=== PATIENT | female | born 1950 | race Caucasian/White ===

== ENCOUNTER 2018-01-10 17:15 | Emergency (ER) | payer MEDICARE, OTHER ==
[2018-01-10 17:23] VITALS: BP 166/65
[2018-01-10] MEDS ORDERED: LIDOCAINE 5% (700 MG) TRANSDERMAL ADH..PATCH TP ONE (17:56)
[2018-01-10] MEDS ORDERED: CYCLOBENZAPRINE HCL 10 MG TABLET PO ONE (17:56)
[2018-01-10] MEDS ORDERED: ACETAMINOPHEN 325 MG TABLET PO ONE (17:56)
--- NOTE | 2018-01-10 17:56 | ER Document Report ---
ED Medical Screen (RME) - General Chief Complaint: Leg Pain Stated Complaint: LEG PAIN Time Seen by Provider: 01/10/18 17:42 Information source: Patient TRAVEL OUTSIDE OF THE [place] IN LAST 30 DAYS: No - HPI Patient complains to provider of: back pain Onset: Other - 67-year-old female presents for evaluation of left-sided low back pain. This was atraumatic in nature though she has been working 12 hours a day generally seated has had some low back pain problems in the past. She notes that since it started she visited an urgent care at which time they gave her diclofenac and encouraged her to utilize some exercises to help with her symptoms. These have helped only a little bit with her symptoms since then. She is now having difficulty walking and going from sitting to standing and is concerned she may not be able to function. Denies any loss of continence in bladder or bowel, denies any IV drug abuse, denies any focal numbness or weakness in the lower extremities. Denies any fevers or chills, abdominal pain , diarrhea constipation or dysuria denies any chest pain or shortness of breath no lightheadedness or other symptoms. - Related Data Allergies/Adverse Reactions: No Known Allergies Allergy (Verified 01/10/18 17:46) Past Medical History - General Information source: Patient - Social History Chew tobacco use (# tins/day): No Frequency of alcohol use: Occasional Drug Abuse: None Renal/ Medical History: Denies: Hx Peritoneal Dialysis Past Surgical History: Reports: Hx Cholecystectomy, Hx Orthopedic Surgery - 5- 7c fusion Review of Systems - Review of Systems -: Yes All other systems reviewed and negative Physical Exam - Vital signs Vitals: Temp Pulse Resp BP Pulse Ox 98.2 F 89 18 166/65 H 97 01/10/18 17:21 01/10/18 17:21 01/10/18 17:21 01/10/18 17:21 01/10/18 17:21 - General General appearance: Appears well In distress: None - HEENT Head: Normocephalic Eyes: Normal Conjunctiva: Normal Cornea: Normal Extraocular movements intact: Yes Eyelashes: Normal Pupils: PERRL - Respiratory Respiratory status: No respiratory distress Chest status: Nontender Breath sounds: Normal Chest palpation: Normal - Cardiovascular Rhythm: Regular Heart sounds: Normal auscultation Murmur: No - Abdominal Inspection: Normal Distension: No distension Tenderness: Nontender - Back Back: Tender - Marked tenderness along the left quadratus lumborum at the lumbosacral junction - Extremities General upper extremity: Normal inspection, Nontender, Normal ROM, Normal strength General lower extremity: Normal inspection, Nontender, Normal ROM, Normal strength - Neurological Neuro grossly intact: Yes Cognition: Normal Orientation: AAOx4 [place] Coma Scale Eye Opening: Spontaneous [place] Coma Scale Verbal: Oriented [place] Coma Scale Motor: Obeys Commands [place] Coma Scale Total: 15 Speech: Normal Cranial nerves: Normal Cerebellar coordination: Normal Motor strength normal: LUE, RUE, LLE, RLE - Psychological Associated symptoms: Normal affect Course - Re-evaluation Re-evalutation: 01/10/18 18:27 This is 67-year-old female presents for atraumatic back pain suggestive of a likely musculoskeletal etiology has no risk factors for an epidural abscess, has no symptoms to suggest cauda equina syndrome. At low risk for a compressive spinal lesion at this time. We will defer further imaging workup at this time as I believe that these are very unlikely diagnoses. We will attempt symptomatic care utilizing Flexeril, Tylenol, NSAIDs as well as topical Lidoderm. We will plan for this patient undergo discharge with strict return precautions related to the diagnoses previously described. - Vital Signs Vital signs: Temp Pulse Resp BP Pulse Ox 98.2 F 89 18 166/65 H 97 01/10/18 17:21 01/10/18 17:21 01/10/18 17:21 01/10/18 17:21 01/10/18 17:21 Doctor's Discharge - Discharge Clinical Impression: Back pain Qualifiers: Back pain location: low back pain Chronicity: acute Back pain laterality: left Sciatica presence: without sciatica Qualified Code(s): M54.5 - Low back pain Condition: Good Disposition: HOME, SELF-CARE Instructions: Low Back Pain ([facility]) Additional Instructions: Your seen today in the emergency department for your low back pain. He had an evaluation including a physical exam. It is likely that your back pain is the cause of your leg pain. You should use an NSAID daily, you should use Tylenol 1 g 3 times or 4 times per day, you should use the muscle relaxer as needed, you should use the topical cream prescribed to you as needed for your pain at least twice a day. Return for worsening numbness or weakness in your legs, if you cannot urinate or you cannot move your bowels. Prescriptions: Cyclobenzaprine HCl [Flexeril 5 mg Tablet] 5 mg PO TID #21 tablet Lidocaine HCl [Xylocaine 5% Ointment 35.44 gm] 35.44 applic TP BID 7 Days #2 tube Forms: Elevated Blood Pressure
== END 2018-01-10 18:17 | disposition home or self-care (01) ==
LOC: ER 17:15
DX: M54.5 Low back pain (principal)
CPT/HCPCS: 99283; A9270 ×2